=== PATIENT | female | born 1970 | race Caucasian/White ===

== ENCOUNTER 2022-03-08 07:03 | Day surgery (SDC) | payer SELFPAY ==
[~2022-03-08] VITALS: Ht 160 cm; Wt 76.2 kg
[~2022-03-08 07:03] MED LIST: ACID CONTROL MA20 MG PO; CRANBERRY400 MG PO; MEGA BIOTIN10 MG PO; MULTI VITAMIN1 TAB; PANTOPRAZOLE SO40 M3 PO; PROBIOTI2 PO; ZYRTEC10 MG PO
[2022-03-08 09:22] VITALS: BP 123/79
== END 2022-03-08 09:11 | disposition home or self-care (01) | DRG 392 ==
LOC: ENDO 07:03 → ORM 11:30 → ENDO 11:30
PROVIDERS: ATTEND Surgery
PROC: 0DB58ZX Excision of Esophagus, Via Natural or Artificial Opening Endoscopic, Diagnostic (ICD-10-PCS; principal; 2022-03-08)
PROC: 0DB68ZX Excision of Stomach, Via Natural or Artificial Opening Endoscopic, Diagnostic (ICD-10-PCS; 2022-03-08)
DX: K21.9 Gastro-esophageal reflux disease without esophagitis (principal); K22.89 Other specified disease of esophagus